=== PATIENT | male | born 1950 | race Caucasian/White ===

== ENCOUNTER 2019-06-02 12:16 | Outpatient (CLI) | payer MEDICARE, SELFPAY | END 2019-06-02 12:17 | disposition home or self-care (01) | LOC: CHSLAB 12:27 | PROVIDERS: Visit Provider Specialist | DX: C44.41 Basal cell carcinoma of skin of scalp and neck (principal) | CPT/HCPCS: 88305 ==

== ENCOUNTER 2021-02-14 13:01 | Outpatient (CLI) | payer MEDICARE, SELFPAY | END 2021-02-14 13:02 | disposition home or self-care (01) | LOC: CHSOUTPT 13:11 | PROVIDERS: PCP Internal Medicine; Visit Provider Specialist | DX: C44.329 Squamous cell carcinoma of skin of other parts of face (principal) | CPT/HCPCS: 88305 ==